=== PATIENT | female | born 1990 | race Caucasian/White ===

== ENCOUNTER 2016-11-17 18:24 | Emergency (ER) | payer OTHER ==
[~2016-11-17] VITALS: Ht 160 cm; Wt 49.0 kg
[~2016-11-17 18:24] MED LIST: ALPRAZOLAM 0.0.25 M1 PO; BIRTH CONTROL PO; CIPRO500 MG PO; HYDROCODON-ACE1 EAC7 PO; HYDROCODONE-AP1 EAC6 PO; MOBIC15 MG PO; ONDANSETRON HCL4 M2 PO; PERCOCET 5-3251 EACH PO; PRILOSEC40 MG PO; ZOFRAN ODT4 MG PO; ZOFRAN4 MG PO
[2016-11-17 18:45] LABS: URINE BILIRUBIN NEGATIVE (Negative); URINE BLOOD TRACE (Negative); URINE COLOR YELLOW; URINE GLUCOSE-RANDOM* NEGATIVE (Negative); URINE KETONES NEGATIVE (Negative); URINE LEUKOCYTES-REFLEX 1+ (Negative); URINE PROTEIN (DIPSTICK) NEGATIVE (Negative); URINE SPECIFIC GRAVITY 1.015 (1.003-1.035); URINE UROBILINOGEN 0.2 E.U./dl (0.2-1.0)
[2016-11-17 18:56] LABS: SQUAMOUS >10 Many /LPF (0-3)
[2016-11-17 18:57] LABS: CASTS None Seen /LPF (None Seen); CRYSTALS None Seen /LPF (None Seen); URINE RBC 0-2 Rare /HPF (0-2)
[2016-11-17 20:45] LABS: ABSOLUTE NEUTROPHILS 2.9 thou/uL (1.4-8.2); BASOPHILS 0.7 % (0.0-2.0); HEMATOCRIT 42.4 % (37.0-47.0); HEMOGLOBIN 14.4 gm/dL (12.0-15.0); LYMPHOCYTES 44.5 % (24.0-44.0); MCH 30.6 pg (26.0-34.0); MCHC 34.1 % (28.0-37.0); MCV 89.6 fL (80.0-100.0); MONOCYTES 5.6 % (1.0-8.0); PLATELET COUNT 121 thou/uL (150-400); POLYS 47.2 % (36.0-66.0); RBC 4.73 mil/uL (4.20-5.00); RDW 12.1 % (10.5-14.5); WBC 6.1 thou/uL (4.0-11.0)
[2016-11-17 20:53] LABS: MANUAL DIFF NO
[2016-11-17 21:00] LABS: CALCIUM 8.7 mg/dL (8.5-10.1); CREATININE 0.6 mg/dL (0.6-1.3); POTASSIUM 3.7 mmol/L (3.5-5.1)
[2016-11-17 21:49] LABS: URINE BILIRUBIN NEGATIVE (Negative); URINE BLOOD TRACE (Negative); URINE COLOR YELLOW; URINE GLUCOSE-RANDOM* NEGATIVE (Negative); URINE KETONES NEGATIVE (Negative); URINE NITRITE NEGATIVE (Negative); URINE PROTEIN (DIPSTICK) NEGATIVE (Negative); URINE SPECIFIC GRAVITY 1.015 (1.003-1.035); URINE UROBILINOGEN 0.2 E.U./dl (0.2-1.0)
[2016-11-17] MEDS ORDERED: ZOFRAN ODT4 MG DISSOLVE (22:02)
[2016-11-17] MEDS ORDERED: HYDROCODONE-AP1 EAC6 PO (22:02)
[2016-11-18 14:08] LABS: CHLAMYDIA TRACHOMATIS-PCR Negative (Negative); NEISSERIA GONORRHEA-PCR Negative (Negative)
== END 2016-11-17 22:14 | disposition home or self-care (01) ==
LOC: ER 18:24
PROVIDERS: Physician Assistant
DX: N83.202 Unspecified ovarian cyst, left side (principal); N64.89 Other specified disorders of breast; F17.210 Nicotine dependence, cigarettes, uncomplicated; F84.5 Asperger's syndrome; F41.9 Anxiety disorder, unspecified; Z90.89 Acquired absence of other organs; Z88.6 Allergy status to analgesic agent; Z88.8 Allergy status to other drugs, medicaments and biological substances

== ENCOUNTER 2019-03-20 17:47 | Emergency (ER) | payer OTHER ==
[~2019-03-20] VITALS: Ht 160 cm; Wt 47.6 kg
[~2019-03-20 17:47] MED LIST changes: +BENADRYL25 MG PO; +CLONAZEPAM 0.50.5 M1 PO; +FLEXERIL PO; +HYDROXYCHLOROQ200 M1 PO; +LYRICA 50 MG50 MG; +LYRICA 50 MG50 MG PO; +NITROFURANTOIN100 MG PO; +NORCO 5-325 TA1 EAC1 PO; +NORCO 5-325 TA1 EACH PO; +OXYCONTIN10 M1 PO; +PROTONIX 20 MG20 M1 PO; +PROTONIX40 M4 PO; +TYLENOL325 MG PO; +ZOFRAN ODT4 MG DISSOLVE
[2019-03-20 18:35] LABS: URINE BILIRUBIN NEGATIVE (Negative); URINE BLOOD NEGATIVE (Negative); URINE CLARITY CLEAR; URINE COLOR YELLOW; URINE GLUCOSE-RANDOM* NEGATIVE (Negative); URINE KETONES TRACE (Negative); URINE LEUKOCYTES-REFLEX NEGATIVE (Negative); URINE NITRITE-REFLEX NEGATIVE (Negative); URINE PROTEIN (DIPSTICK) TRACE (Negative); URINE SPECIFIC GRAVITY 1.025 (1.005-1.035); URINE UROBILINOGEN 0.2 E.U./dl (0.2-1.0)
[2019-03-20 18:43] LABS: AMP/METHAMP Negative (Negative); BARBITURATES Negative (Negative); BENZODIAZEPINES POSITIVE (Negative); COCAINE Negative (Negative); METHADONE Negative (Negative); OPIATES POSITIVE (Negative); PCP Negative (Negative)
[2019-03-20] MEDS ORDERED: PREDNISONE50 MG PO (18:58)
[2019-03-20 20:26] VITALS: BP 126/84
== END 2019-03-20 20:26 | disposition home or self-care (01) ==
LOC: ER 17:47
PROVIDERS: Emergency Medicine
DX: M25.522 Pain in left elbow (principal); M25.521 Pain in right elbow; M25.562 Pain in left knee; M25.561 Pain in right knee; M54.5 Low back pain; F41.9 Anxiety disorder, unspecified; M79.7 Fibromyalgia; M06.9 Rheumatoid arthritis, unspecified; F17.210 Nicotine dependence, cigarettes, uncomplicated; Z88.5 Allergy status to narcotic agent; Z88.6 Allergy status to analgesic agent; Z88.8 Allergy status to other drugs, medicaments and biological substances

== ENCOUNTER 2019-03-22 14:52 | Emergency (ER) | payer OTHER ==
[~2019-03-22] VITALS: Ht 160 cm; Wt 48.6 kg
[~2019-03-22 14:52] MED LIST changes: +PREDNISONE50 MG PO
[2019-03-22 15:15] LABS: BASOPHILS 0.7 % (0.0-2.0); EOSINOPHILS 2.7 % (0.0-3.0); HEMATOCRIT 41.6 % (37.0-47.0); HEMOGLOBIN 14.2 gm/dL (12.0-15.0); LYMPHOCYTES 40.5 % (24.0-44.0); MCH 31.3 pg (26.0-34.0); MCHC 34.1 g/dL (28.0-37.0); MCV 91.6 fL (80.0-100.0); MONOCYTES 3.5 % (1.0-8.0); PLATELET COUNT 202 thou/uL (150-400); POLYS 52.6 % (36.0-66.0); RBC 4.54 mil/uL (4.20-5.00); RDW 13.2 % (10.5-14.5); WBC 9.5 thou/uL (4.0-11.0)
[2019-03-22 15:17] LABS: URINE BILIRUBIN NEGATIVE (Negative); URINE BLOOD NEGATIVE (Negative); URINE CLARITY CLEAR; URINE COLOR YELLOW; URINE GLUCOSE-RANDOM* NEGATIVE (Negative); URINE KETONES NEGATIVE (Negative); URINE LEUKOCYTES-REFLEX NEGATIVE (Negative); URINE NITRITE-REFLEX NEGATIVE (Negative); URINE PROTEIN (DIPSTICK) NEGATIVE (Negative); URINE SPECIFIC GRAVITY >= 1.030 (1.005-1.035); URINE UROBILINOGEN 0.2 E.U./dl (0.2-1.0)
[2019-03-22 15:26] LABS: CALCIUM 8.9 mg/dL (8.5-10.1); CREATININE 0.8 mg/dL (0.6-1.0); POTASSIUM 3.8 mmol/L (3.5-5.1)
[2019-03-22 15:32] LABS: ALBUMIN 3.7 g/dL (3.4-5.0); TOTAL BILIRUBIN 0.4 mg/dL (<0.1-1.0); TOTAL PROTEIN 6.9 g/dL (6.4-8.2); URIC ACID* 3.3 mg/dL (2.6-7.2)
[2019-03-22 15:58] LABS: AMP/METHAMP Negative (Negative); BARBITURATES Negative (Negative); BENZODIAZEPINES POSITIVE (Negative); COCAINE Negative (Negative); METHADONE Negative (Negative); OPIATES POSITIVE (Negative); PCP Negative (Negative)
[2019-03-22 17:05] VITALS: BP 99/66
== END 2019-03-22 17:23 | disposition home or self-care (01) ==
LOC: ER 14:52
PROVIDERS: Emergency Medicine
DX: M35.00 Sjogren syndrome, unspecified (principal); M79.7 Fibromyalgia; F17.210 Nicotine dependence, cigarettes, uncomplicated; F41.9 Anxiety disorder, unspecified; I73.9 Peripheral vascular disease, unspecified; M32.9 Systemic lupus erythematosus, unspecified; M06.9 Rheumatoid arthritis, unspecified; Z88.8 Allergy status to other drugs, medicaments and biological substances; Z88.6 Allergy status to analgesic agent; Z90.89 Acquired absence of other organs

== ENCOUNTER 2019-06-30 23:48 | Emergency (ER) | payer OTHER ==
[~2019-06-30] VITALS: Ht 160 cm; Wt 46.3 kg
[2019-07-01] MEDS ORDERED: CARBAMAZEPINE100 M1 PO (02:12)
[2019-07-01 02:20] VITALS: BP 105/59
--- NOTE | 2019-07-01 10:42 | EKG ---
[address] [place] [address] ELECTROCARDIOGRAM REPORT Name: RAMBO FLYNN Room #: [facility]#: [id number] Admission: 06/30/19 Attend Phys: Discharge: 07/01/19 Date of : 89 Report #: [id number] THIS REPORT FOR: //name// [facility] ED Test Date: 2019-07-01 Test Time: 00:50:42 Pat Name: RAMBO FLYNN Department: Room: Gender: F [employer] Maintenance Worker: YUVAL : 1990 Requested By: Campbell Garcia Order Number: [id number] MD: Casimiro Huizar Measurements Intervals Transfer Rate: 72 P: 77 OR: 151 QRS: 80 QRSD: 88 T: 60 QT: 395 QTc: 433 Interpretive Statements Sinus arrhythmia Nonspecific ST and T wave abnormality No previous ECG available for comparison Electronically Signed On 07-01-2019 10:42:20 CDT by Casimiro Huizar [email or web address] <ELECTRONICALLY SIGNED> By: Casimiro Huizar MD, [facility] 07/01/19 1042 0050 0050 Casimiro Huizar MD, FACC /EPI
== END 2019-07-01 02:25 | disposition home or self-care (01) ==
LOC: ER 23:48
DX: G50.0 Trigeminal neuralgia (principal); F17.210 Nicotine dependence, cigarettes, uncomplicated; F41.9 Anxiety disorder, unspecified; M79.7 Fibromyalgia; N80.9 Endometriosis, unspecified; M06.9 Rheumatoid arthritis, unspecified; M32.9 Systemic lupus erythematosus, unspecified; Z88.8 Allergy status to other drugs, medicaments and biological substances; Z88.6 Allergy status to analgesic agent; Z90.89 Acquired absence of other organs

== ENCOUNTER 2020-08-01 17:37 | Emergency (ER) | payer OTHER ==
[~2020-08-01] VITALS: Ht 160 cm; Wt 49.0 kg
[~2020-08-01 17:37] MED LIST changes: +CARBAMAZEPINE100 M1 PO
[2020-08-01 19:49] VITALS: BP 99/67
== END 2020-08-01 19:49 | disposition home or self-care (01) ==
LOC: ER 17:37
DX: S39.012A Strain of muscle, fascia and tendon of lower back, initial encounter (principal); S16.1XXA Strain of muscle, fascia and tendon at neck level, initial encounter; R51 Headache; F41.9 Anxiety disorder, unspecified; M79.7 Fibromyalgia; M06.9 Rheumatoid arthritis, unspecified; R10.2 Pelvic and perineal pain; F17.210 Nicotine dependence, cigarettes, uncomplicated; Z90.89 Acquired absence of other organs; Z79.899 Other long term (current) drug therapy; Z88.8 Allergy status to other drugs, medicaments and biological substances; Z88.6 Allergy status to analgesic agent; V43.52XA Car driver injured in collision with other type car in traffic accident, initial encounter; Y93.I9 Activity, other involving external motion; Y92.488 Other paved roadways as the place of occurrence of the external cause; Y99.8 Other external cause status